=== PATIENT | male | born 1950 | race Caucasian/White ===

== ENCOUNTER 2017-10-13 08:50 | Day surgery (SDC) | payer MEDICARE, BC, OTHER ==
[~2017-10-13] VITALS: Ht 180.3 cm; Wt 98.3 kg
[~2017-10-13 08:50] MED LIST: CARD1TAB5 PO; CYMB60CA3 PO; ENOX100I3 SQ; GLUCTAB PO; JARD1TAB3 PO; METO1TAB32 PO; PRAV80TA2 PO; PREG100CA PO; SB L81TA PO; WARF-20 PO
[2017-10-13] MEDS ORDERED: LR 1,000 ML IV ONE (09:00)
[2017-10-13 10:11] LABS: INR 1.01
[2017-10-13] MEDS ORDERED: PROPOFOL 200 MG/20 ML VIAL As Ordered ONE (11:37)
[2017-10-13] MEDS ORDERED: MIDAZOLAM INJ 2 MG/2 ML VIAL (J2250) As Ordered ONE (11:37)
[2017-10-13] MEDS ORDERED: fentaNYL 100 MCG/2 ML INJECTION (J3010) As Ordered ONE (11:37)
[2017-10-13] MEDS ORDERED: ONDANSETRON 4MG/2ML VIAL (J2405) As Ordered ONE (12:12)
[2017-10-13] MEDS ORDERED: NORCO, ANEXSIA 5/325MG TABLET (HYDROcodone/ACETAMINOPHEN) PO PRN ×3 (13:15)
[2017-10-13] MEDS ORDERED: fentaNYL 100 MCG/2 ML INJECTION (J3010) IV PRN (13:15)
[2017-10-13] MEDS ORDERED: ONDANSETRON 4MG/2ML VIAL (J2405) IV PRN (13:15)
[2017-10-13] MEDS ORDERED: LR 1,000 ML IV SCH ×2 (13:15)
[2017-10-13 14:50] VITALS: BP 121/71
--- NOTE | 2017-10-13 18:13 | RO ---
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 POSTOPERATIVE DIAGNOSIS: Left ulnar nerve entrapment at the elbow. OPERATIVE PROCEDURE: Left ulnar nerve transposition at the elbow. SURGEON: Aristeo Laura MD INDUSTRIAL WORKERS: KB Dial ANESTHESIA: General. ESTIMATED BLOOD LOSS: Minimal. COMPLICATIONS: None. INDICATIONS: 67-year-old gentleman who has had some persistent numbness in his ulnar two digits. He had a positive Tinel's over the ulnar nerve at the elbow, but did not have a positive Tinel's over the ulnar nerve at the wrist. He had a negative Tinel's over the median nerve at the wrist and had no median nerve symptoms. The imaging nerve conduction study was positive for ulnar nerve entrapment. He decided to go ahead with just the ulnar nerve transposition; did not want to proceed with the carpal tunnel release as he is having no carpal tunnel symptoms. He understood the nature of this, the risks of bleeding, infection, damage to nerves, vessels, persistent pain, subluxation, recurrent symptoms or weakness, and need for further surgery. DESCRIPTION OF PROCEDURE: The patient was taken to the operating room and placed in the supine position after general anesthesia was induced. The left upper extremity was prepped and draped in usual sterile fashion. Tourniquet was placed sterilely and inflated to 250 mmHg. Time-out was again performed. I then created a curvilinear incision over the medial aspect of the elbow. Blunt dissection was carried down through subcutaneous tissue. I controlled hemostasis with a cautery. I then unroofed the ulnar nerve at the elbow and used the bipolar when I was cauterizing anywhere near the nerve. The nerve was carefully dissected out of its belly. I removed some the inner muscular septum proximally and then gradually elevated the nerve out of the groove preserving any muscular branches. I did free up a little bit of the fascia and the proximal forearm musculature to allow for less tension on the nerve. I gradually transposed the nerve anteriorly, created a flap just above the fascia and gently retracted the nerve anteriorly as I put the elbow through range of motion. There was no tension on the nerve. It did have an hour glass appearance were it was narrowed just distal to the medial epicondyle. I copiously irrigated, tacked down the subcutaneous tissue while gently retracting the nerve anteriorly and two of the #2-0 Vicryl sutures were used to create a pouch keeping the nerve anteriorly. I then put the elbow through a range of motion. Again, there was no tension on the nerve. The subcu was closed with #2-0 Vicryl and the skin with kalee. Sterile dressing was applied, followed by a long-arm posterior splint. PLAN: Will be routine postop. We will keep the splint on for 10-14 days and then take his kalee out and start range of motion.
== END 2017-10-13 15:16 | disposition home or self-care (01) ==
LOC: M SDC 08:50
PROVIDERS: ATTEND Orthopaedic Surgery
DX: G56.22 Lesion of ulnar nerve, left upper limb (principal); G56.02 Carpal tunnel syndrome, left upper limb; E11.9 Type 2 diabetes mellitus without complications; I48.91 Unspecified atrial fibrillation; I10 Essential (primary) hypertension; E78.00 Pure hypercholesterolemia, unspecified; M12.9 Arthropathy, unspecified; M54.2 Cervicalgia; G62.9 Polyneuropathy, unspecified; R06.83 Snoring; G47.33 Obstructive sleep apnea (adult) (pediatric); Z88.6 Allergy status to analgesic agent; Z79.899 Other long term (current) drug therapy; Z79.84 Long term (current) use of oral hypoglycemic drugs; Z79.82 Long term (current) use of aspirin
CPT/HCPCS: 36415; 64718; 85610; J2250; J2405; J3010

== ENCOUNTER 2025-05-30 08:48 | Day surgery (SDC) | payer MEDICARE, BC ==
[~2025-05-30] VITALS: Ht 182.9 cm; Wt 89.2 kg
[~2025-05-30 08:48] MED LIST changes: +ASPI-163 PO; +CYCLOPENTOLATE 1% OPHTH SOLN 2 ML BTL OS SCH; -CYMB60CA3 PO; +CYMB60CA4 PO; +INSU100I43 SC; +LIDOCAINE 3.5% 1 ML OPHTH TOPICAL GEL OU ONE; +MIDAZOLAM INJ 2 MG/2 ML VIAL As Ordered ONE; +OFLOXACIN 0.3 % (OCUFLOX) OPTH SOL 5ML OS ONE; +PHENYLEPHRINE 10% OPHTH SOL 5ML OS PRN; +PHENYLEPHRINE 2.5% OPHTH SOL 2ML OS SCH; -PRAV80TA2 PO; +PRAV80TA75 PO; +PREG-35 PO; -PREG100CA PO; -SB L81TA PO; +SEMA0.257 SC; +TROPICAMIDE 1% OPHTH SOLN 15ML OS SCH
[2025-05-30] MEDS ORDERED: BSS IRRIG/VANCO(10MG)/TOBRA(5MG)/EPINEPH(1:1000-0.5CC)500ML BAG-ORONLY ONE (08:49)
[2025-05-30] MEDS ORDERED: XARE20TA (09:20)
[2025-05-30] MEDS ORDERED: ATOR80TA59 (09:20)
[2025-05-30] MEDS: CEFUROXIME 1 MG/0.1 ML INTRACAMERAL INJ As Ordered ONE (10:21)
[2025-05-30] MEDS: LIDOCAINE 1% SDV 5 ML VIAL As Ordered ONE (10:21)
[2025-05-30 10:59] VITALS: BP 93/58; TEMP 97; O2SAT 97
== END 2025-05-30 11:02 | disposition home or self-care (01) ==
LOC: M SDC 08:48
PROVIDERS: ATTEND Ophthalmology
DX: H25.12 Age-related nuclear cataract, left eye (principal); I48.91 Unspecified atrial fibrillation; I25.10 Atherosclerotic heart disease of native coronary artery without angina pectoris; E11.9 Type 2 diabetes mellitus without complications; G47.30 Sleep apnea, unspecified; Z88.8 Allergy status to other drugs, medicaments and biological substances; Z79.899 Other long term (current) drug therapy
CPT/HCPCS: 66984; J0697; J2250; J3010; V2632